=== PATIENT | female | born 1940 | race Caucasian/White ===

== ENCOUNTER 2016-11-17 13:52 | Day surgery (SDC) | payer OTHER ==
[2016-11-17] MEDS ORDERED: Lactated Ringers 1,000 ML PRIMARY IV ONE ×2 (14:05→17:05)
[2016-11-17] MEDS ORDERED: ceFAZolin Inj 2gm (Premix) 50 ML IV ONE (14:05)
[2016-11-17] MEDS ORDERED: LIDOCAINE W/ SODIUM BICARB 0.5 ML SYR ONE (14:05)
[2016-11-17 15:06] VITALS: RESP 16
--- NOTE | 2016-11-17 15:30 | EKG ---
[address] [place] [address] Measurements Intervals [place] Rate: 89 P: 47 RI: 155 QRS: -55 QRSD: 162 T: 126 QT: 408 QTc: 454 Interpretive Statements SINUS RHYTHM WITH OCCASIONAL VENTRICULAR PREMATURE COMPLEXES MARKED LEFT AXIS DEVIATION [QRS AXIS < -30] LEFT BUNDLE BRANCH BLOCK [120+ ms QRS DURATION, 80+ ms Q/S IN V1/V2, 85+ ms R IN I/aVL/V5/V6] No previous ECG available for comparison Electronically Signed On 11-17-16 15:33:58 MST by Blu Wilson MD [email or web address]
[2016-11-17] MEDS ORDERED: Sodium Chloride 0.9% vial 10 ML ONE (15:38)
[2016-11-17] MEDS ORDERED: BACITRACIN 50,000 UNIT VIAL IRRIG ONE (15:38)
[2016-11-17] MEDS ORDERED: DEXAMETHASONE SOD PHOSPHATE 4 MG/1 ML VIAL ONE (16:23)
[2016-11-17] MEDS ORDERED: LIDOCAINE 2%/ EPI 1:200,000 - 20 ML VIAL ONE (16:23)
[2016-11-17] MEDS ORDERED: MEPIVACAINE HCL/PF 20 MG/1 ML IV ONE (16:23)
[2016-11-17] MEDS ORDERED: MIDAZOLAM 5 MG/1 ML ONE (16:24)
[2016-11-17] MEDS ORDERED: fentaNYL Inj 100 MCG/2 ML VIAL ONE (16:24)
--- NOTE | 2016-11-17 16:24 | DI ---
LEFT SHOULDER, 11/17/2016 3:43 PM: Clinical History: Pain. Injury. The patient fell. Previous Exam: None at this facility. 2 views are submitted. There is osteoporosis. On the scapular Y view, there does appear to be a step off of the posterior margin of the cortex of the humeral head and there is a double density on the AP projection. A fracture through the head of the humerus cannot be excluded. A true lateral projection is recommended. The views of the left apex and left lung are normal. Readin. Suspicion of a fracture through the head of the humerus. A lateral projection is recommended. 2. Osteoporosis.
[2016-11-17] MEDS ORDERED: NEOMYCIN/BACITRACIN/POLYMYXIN 0.9 GM OINT PACKET TOPICAL ONE (16:27)
--- NOTE | 2016-11-17 17:37 | CRNA.PROCE ---
Nerve Block Documentation - - Type of Nerve Block Used: Left Axillary Block Position for Nerve Block: Supine Moniters Used During Block: EKG, SPO2, NIBP Oxygen Sumpplented: Yes Sedation Used - Enter Amount in Comment Field: Midazolam (mg): Yes (2mg), Fentanyl (mcg): Yes (50mcg) Skin Prep Used: ChloroPrep Draped: No Technique: Nerve Stimulator Nerve Block Needle Used: 40 mm ProBlk II Stimulation Hz: 2 Stimulation Staring mA: 1.4 Stimulation Ending mA: 0.44 Local Anesthetic - Enter Amt in Comment Field: 0.5 % Bupivacaine Plain (mL): Yes (20ml), 2 % Xylocaine with Epinephrine 1:200,000 (mL): Yes (20ml) Additives to Nerve Blocks: Dexamethasone (mL): Yes (8mg(2ml))
[2016-11-17] MEDS ORDERED: KETOROLAC 30 MG/1 ML VIAL ONE (18:48)
[2016-11-17] MEDS ORDERED: BUPivacaine Liposome/PF (Exparel) Inj 20ml vial INFIL ONE ×2 (18:52→19:00)
[2016-11-17] MEDS ORDERED: ACETAMINOPHEN 325 MG TABLET PO PRN (19:34)
[2016-11-17] MEDS ORDERED: Prochlorperazine Tab 10 MG TAB PO PRN (19:34)
[2016-11-17] MEDS ORDERED: NORMAL SALINE 10 ML SYRINGE FLUSH IVP PRN (19:34)
[2016-11-17] MEDS ORDERED: MORPHINE SULFATE 2 MG/1 ML IVP PRN (19:34)
[2016-11-17] MEDS ORDERED: ONDANSETRON 4 MG/2 ML VIAL IVP PRN (19:34)
[2016-11-17] MEDS ORDERED: Ondansetron ODT Tab 8 MG TAB PO PRN (19:34)
[2016-11-17] MEDS ORDERED: BISACODYL 10 MG SUPPOSITORY RECTAL PRN (19:34)
[2016-11-17] MEDS ORDERED: diphenhydrAMINE 25 MG CAPSULE PO PRN (19:34)
[2016-11-17] MEDS ORDERED: CALCIUM CARBONATE 500 MG (TUMS) CHEWABLE TABLET PO PRN (19:34)
[2016-11-17] MEDS ORDERED: BISACODYL 5 MG TABLET PO PRN (19:34)
[2016-11-17] MEDS ORDERED: HYDROcodone-APAP 7.5 MG-325 MG TABLET PO PRN (19:34)
[2016-11-17] MEDS ORDERED: IBUPROFEN 400 MG TABLET PO PRN (19:34)
[2016-11-17] MEDS ORDERED: MAG HYDROX/AL HYDROX/SIMETH 30 ML SUSP PO PRN (19:34)
[2016-11-17] MEDS ORDERED: Lactated Ringers 1,000 ML PRIMARY IV SCH (19:45)
[2016-11-17] MEDS ORDERED: HYDROcodone-APAP 7.5 MG-325 MG TABLET PO ONE (20:10)
[2016-11-17 20:40] VITALS: TEMP 98
== END 2016-11-17 20:49 | disposition home or self-care (01) ==
LOC: SDSC 13:52
PROVIDERS: ATTEND Orthopaedic Surgery
DX: S52.612A Displaced fracture of left ulna styloid process, initial encounter for closed fracture (principal); S52.512A Displaced fracture of left radial styloid process, initial encounter for closed fracture; W00.0XXA Fall on same level due to ice and snow, initial encounter
CPT/HCPCS: 25609; 25652; 73030; 73200; 76000; 93005; 93010; A4216; C9290; J0690; J1885; J2704; J3010; J0670; J1100; J2250; J7120

== ENCOUNTER → 2016-11-25 | Outpatient (CLI) | payer OTHER ==
--- NOTE | 2016-11-25 13:10 | DI ---
LEFT WRIST, 11/25/2016 10:51 AM: Clinical History: Left wrist fracture with routine healing. Previous Exam: None at this facility. 3 views are submitted. The patient is status post ORIF of a comminuted fracture of the distal radius. There is an intra-articular component. A volar plate has been inserted and the impacted fracture has been restored herrera to complete length. Alignment and position are anatomic. No fracture of the ulna is appreciated. Reading: Status post ORIF of a severely impacted intra-articular fracture of the distal radius. Alignment and position are restored.
== END ==
LOC: ORTHO 11:00
PROVIDERS: ATTEND Orthopaedic Surgery
DX: S52.502E Unspecified fracture of the lower end of left radius, subsequent encounter for open fracture type I or II with routine healing (principal)
CPT/HCPCS: 73110; G0463

== ENCOUNTER → 2016-12-14 | Outpatient (CLI) | payer OTHER ==
--- NOTE | 2016-12-14 18:09 | DI ---
XR WRIST COMPLETE MIN 3VW,12/14/2016 11:05 AM: Clinical History: Left wrist fracture Previous Exam: November 25, 2016 Findings: 3 views of the left wrist are obtained, and demonstrate a comminuted intra-articular fracture involvi ng the distal left radius. There is an ulnar styloid fracture noted as well. Mild degenerative changes are noted involving the first carpometacarpal joint. Impression: Comminuted left distal radial fracture with internal fixation.
== END ==
LOC: ORTHO 11:10
PROVIDERS: ATTEND Physician Assistant
DX: S52.572E Other intraarticular fracture of lower end of left radius, subsequent encounter for open fracture type I or II with routine healing (principal)
CPT/HCPCS: 73110

== ENCOUNTER → 2016-12-29 | Outpatient (CLI) | payer OTHER ==
--- NOTE | 2016-12-29 12:07 | DI ---
LEFT WRIST, 12/29/2016 10:59 AM: Clinical History: Closed Colles' fracture of the left radius with routine healing, subsequent encount er. Previous Exam: Outside films from 11/16/2016 and 12/22/2016, as well as our previous films of 11/25/2016, and 12/14/2016. 3 views are submitted. The fracture of the ulnar styloid is unchanged. The patient is status post PRAMOD F of the severely comminuted intra-articular and impacted fracture of the distal radius. All fracture lucencies are less visible than on the prior examinations indicating progressive healing. There has been no change in alignment and position. Reading: Progressive healing of the comminuted intra-articular fracture of the distal radius with no change in alignment and position. There has been no change in the appearance of the nondisplaced fracture of t he ulnar styloid.
== END ==
LOC: ORTHO 11:27
PROVIDERS: ATTEND Orthopaedic Surgery
DX: S52.532E Colles' fracture of left radius, subsequent encounter for open fracture type I or II with routine healing (principal)
CPT/HCPCS: 73110; G0463